=== PATIENT | female | born 1940 | race Caucasian/White ===

== ENCOUNTER → 2017-01-14 | Outpatient (CLI) | payer MEDICARE, OTHER ==
[2016-07-21 15:11] VITALS: BP 151/71
[~2017-01-14] MED LIST: APIX5TAB PO; ASPI-482 PO; ATOR10TA PO; AZIT250T PO; CELE100C PO; FLUT16SP NS; HYDR-971 PO; LEVO100T PO; LORA10TA68 PO; NAPR500T3 PO; SERT100T PO; TRIA1TAB3 PO
--- NOTE | 2017-01-14 14:58 | KCIC ---
PROCEDURE Renal sonography HISTORY Left renal mass. Follow up study COMPARISON Renal sonogram dated September 11, 2016. FINDINGS The longitudinal and AP and transverse dimensions of the right kidney are 10.6 centimeters and 4.0 centimeters and 5.0 centimeters respectively. No renal mass or hydronephrosis or perinephric fluid collection is seen on this side. The longitudinal and AP and transverse dimensions of the left kidney are 10.6 centimeters and 4.3 centimeters and 4.5 centimeters respectively. There is a hypoechoic lesion within the mid aspect of the left kidney with internal septation and sound through transmission. It measures 5.2 centimeters x 3.0 centimeters x 2.7 centimeters in size. On the previous study, it measured 5.0 centimeters and 3.3 centimeters and 3.3 centimeters in size. Therefore, it has not changed significantly in size. No hydronephrosis or perinephric fluid collection is seen on this side. IMPRESSION Complex cyst of the left kidney which has not changed significantly in size. Recommend continued renal sonography follow-up in 6 months. Electronically signed by: Terry Fox MD (Jan 14, 2017 14:56:09)
== END | disposition home or self-care (01) ==
LOC: KCIC US 13:09
PROVIDERS: ATTEND Family Medicine
DX: N28.89 Other specified disorders of kidney and ureter (principal)
CPT/HCPCS: 76770

== ENCOUNTER → 2017-08-17 | Outpatient (CLI) | payer MEDICARE, OTHER ==
[2016-07-21 15:11] VITALS: BP 151/71
[~2017-08-17] MED LIST changes: -NAPR500T3 PO; +NAPR500T4 PO
--- NOTE | 2017-08-17 15:26 | KCIC ---
EXAM: Renal sonogram complete. HISTORY: Renal cyst follow-up. TECHNIQUE: Sonographic imaging of the kidneys and bladder was performed. COMPARISON: 01/14/2017. FINDINGS: The right kidney measures 12.3 cm yvnb-jz-kziq and the left kidney measures 11.1 cm kjty-dv-hnsl. There is a 4.5 x 3.2 x 2.7 cm complex cystic lesion with thin internal septations within the left kidney. This demonstrates no internal blood flow. There is no hydronephrosis. The bladder is unremarkable. IMPRESSION: 1. 4.5 x 3.2 x 2.7 complex cystic lesion with internal septations within the left kidney, previously measuring 5.2 x 3.0 x 2.7 cm. The interval decrease in maximum dimension may be due to differences in measurement technique. Continued short-term follow-up is recommended to confirm longer-term stability. 2. Otherwise, unremarkable renal sonogram. Electronically signed by: Izabella Santoyo MD (08/17/2017 3:22 PM) [facility]
--- NOTE | 2017-08-17 16:35 | RAD ---
DATE: 08/17/2017 EXAM: MAMMO ETHAN SCREENING BILATERAL HISTORY: Asymptomatic screening mammogram. COMPARISON: Prior mammograms 08/14/2016, 08/13/2015 This study was interpreted with the benefit of Computerized Aided Detection (CAD). The breast parenchyma shows scattered fibroglandular densities. Breast parenchyma level B. FINDINGS: Bilateral CC and MLO views of the breasts were performed. Bilateral breast tomosynthesis was performed in CC and MLO projections. Right breast: There are no suspicious microcalcifications, masses or areas of architectural distortion. Left breast: There are no suspicious microcalcifications, masses or areas of architectural distortion. Findings are stable from prior mammogram. IMPRESSION: Negative 2D and 3-D bilateral mammogram. BI-RADS CATEGORY: 1 NEGATIVE RECOMMENDED FOLLOW-UP: 12M 12 MONTH FOLLOW-UP PQRS compliance statement: Patient information was entered into a reminder system with a target due date 08/17/2018 for the next mammogram. Mammography is a sensitive method for finding small breast cancers, but it does not detect them all and is not a substitute for careful clinical examination. A negative mammogram does not negate a clinically suspicious finding and should not result in delay in biopsying a clinically suspicious abnormality. "Our facility is accredited by the [employer] Mammography [employer]."
== END | disposition home or self-care (01) ==
LOC: KCIC US 13:48
PROVIDERS: ATTEND Family Medicine
DX: Z12.31 Encounter for screening mammogram for malignant neoplasm of breast (principal); N28.1 Cyst of kidney, acquired
CPT/HCPCS: 76770; 77063; G0202; 77067

== ENCOUNTER → 2017-12-16 | Outpatient (CLI) | payer MEDICARE, OTHER ==
[2017-12-16] MEDS: IOHEXOL 300 MG/ML 100ML VIAL. IV ×2 (10:25)
== END | disposition home or self-care (01) ==
LOC: KCIC CT 09:44
DX: I49.3 Ventricular premature depolarization (principal); I70.0 Atherosclerosis of aorta; D71 Functional disorders of polymorphonuclear neutrophils; Z86.711 Personal history of pulmonary embolism
CPT/HCPCS: 71275; Q9967

== ENCOUNTER → 2018-01-17 | Outpatient (CLI) | payer MEDICARE, OTHER ==
[2018-01-17] MEDS: REGADENOSON 0.4 MG/5 ML DISP.SYRIN. IV (10:34)
== END | disposition home or self-care (01) ==
LOC: NM 07:47
DX: R06.09 Other forms of dyspnea (principal); I10 Essential (primary) hypertension; Z88.0 Allergy status to penicillin; Z86.79 Personal history of other diseases of the circulatory system
CPT/HCPCS: 78452; 93017; 93306; 96374; 96375; 96376; A9500; J2785

== ENCOUNTER → 2018-01-27 | Outpatient (CLI) | payer MEDICARE, OTHER ==
[2018-01-27] MEDS: IOHEXOL 300 MG/ML 100ML VIAL. IV (13:08)
[2018-01-27] MEDS: IOHEXOL 240 MG/ML 50ML VIAL. PO (13:08)
== END | disposition home or self-care (01) ==
LOC: KCIC CT 11:39
DX: N28.89 Other specified disorders of kidney and ureter (principal); K42.9 Umbilical hernia without obstruction or gangrene; I70.0 Atherosclerosis of aorta
CPT/HCPCS: 74177; Q9966; Q9967

== ENCOUNTER → 2018-09-29 | Outpatient (CLI) | payer MEDICARE, OTHER ==
[2016-07-21 15:11] VITALS: BP 151/71
[~2018-09-29] MED LIST changes: +HYDR-3164 PO; -HYDR-971 PO; +NAPR-514 PO; -NAPR500T4 PO
--- NOTE | 2018-09-29 13:25 | KCIC ---
Bilateral digital screening mammograms with 3-D tomosynthesis: Reason for examination: Routine screening. Comparison is made to previous studies dated 08/17/2017 and 08/14/2016. Bilateral mammograms in CC and oblique projections were obtained with 2-D imaging and 3-D tomosynthesis imaging on a Siemens Inspiration unit and reviewed on the workstation. Interpretation was made with the benefit of CAD. The skin and nipples show no abnormalities. No abnormal axillary lymph nodes are seen. The breast parenchyma shows scattered fatty and fibroglandular density. (Breast density: Category B.) There continues to be some nodularity at the 2:00 B position of the left breast consistent with probable intramammary lymph node which is stable. There is however a new nodule in the central left breast approximately 8 cm deep to the nipple and measuring approximately 5 mm in size. This may represent a cyst but recommend further evaluation with ultrasound. There are no other new dominant masses, suspicious calcifications or architectural distortion. Benign calcifications are present. Impression: 5 mm nodule in the central left breast approximately 8 cm deep to the nipple. Recommend further evaluation with ultrasound. BI-RADS Category 0: Incomplete. Needs additional imaging evaluation. "Our facility is accredited by the [employer] Mammography [employer]." This patient's information has been entered into a reminder system for the patient to be notified with the results of her examination and a target date for the next mammogram. Electronically signed by: Brenda Salguero MD (09/29/2018 1:22 PM) [facility]
== END | disposition home or self-care (01) ==
LOC: KCIC MAMMO 09:00
PROVIDERS: ATTEND Family Medicine
DX: Z12.31 Encounter for screening mammogram for malignant neoplasm of breast (principal); Z80.3 Family history of malignant neoplasm of breast
CPT/HCPCS: 77063; 77067

== ENCOUNTER → 2018-11-18 | Outpatient (CLI) | payer MEDICARE, OTHER ==
[2016-07-21 15:11] VITALS: BP 151/71
--- NOTE | 2018-11-18 17:24 | KCIC ---
Renal sonography Clinical indications: Follow-up of left kidney cyst. COMPARISON: January 14, 2017 August 17, 2017. FINDINGS: The longitudinal and AP and transverse dimensions of the right kidney are 11.7 cm and 4.3 cm and 5.3 cm respectively. No renal mass or perinephric fluid collection or hydronephrosis is seen on this side. The longitudinal and AP and transverse dimensions of the left kidney are 10.6 cm and 4.8 cm and 4.0 cm respectively. Again seen is a complex cyst of the upper pole of the left kidney which measures 4.9 cm and 2.4 cm and 3.2 cm in size. On the previous 2 studies in December 2016 and July 2017, the cyst measured 5.2 cm x 3.0 cm x 2.7 cm and 4.5 cm x 2.7 cm and 3.2 cm respectively. Therefore, there has been no change in size of this cyst. No hydronephrosis or perinephric fluid collection is seen on the left side. Urinary bladder is mildly distended. No intraluminal echodensities or masses are seen. IMPRESSION: No change in size of complex cyst of the upper pole of the left kidney since January 14, 2017. Electronically signed by: Terry Fox MD (11/18/2018 5:19 PM) [facility]
== END | disposition home or self-care (01) ==
LOC: KCIC US 13:43
PROVIDERS: ATTEND Family Medicine
DX: N28.1 Cyst of kidney, acquired (principal)
CPT/HCPCS: 76770

== ENCOUNTER → 2019-04-10 | Outpatient (CLI) | payer MEDICARE, OTHER ==
[2016-07-21 15:11] VITALS: BP 151/71
--- NOTE | 2019-04-10 11:26 | KCIC ---
Left breast ultrasound: Reason for examination: Follow-up nodules. Comparison is made to previous study dated 10/07/2018. Left whole breast ultrasound including evaluation of all 4 quadrants and the retroareolar and axillary regions of the left breast was performed. There continue to be small hypoechoic lesions at the 2:00, 3:00, 6:00 and 9:00 positions which have benign cystic and fibrocystic appearances. These all appear to be smaller than on previous exam. There is some ductal ectasia in the retroareolar 9:00 position. No suspicious-appearing nodules are seen. No abnormal appearing lymph nodes are seen in the axilla. IMPRESSION: Continued presence of small benign-appearing nodules which have decreased in size since previous exam consistent with cystic and fibrocystic changes. No suspicious lesions are seen. Recommend routine mammographic follow-up. BI-RADS Category 2: Benign. "Our facility is accredited by the [employer] Mammography [employer]." This patient's information has been entered into a reminder system for the patient to be notified with the results of her examination and a target date for the next mammogram. Electronically signed by: Brenda Salguero MD (04/10/2019 11:23 AM) [facility]
== END | disposition home or self-care (01) ==
LOC: KCIC US 10:30
PROVIDERS: ATTEND Family Medicine
DX: N64.89 Other specified disorders of breast (principal); N60.42 Mammary duct ectasia of left breast
CPT/HCPCS: 76641

== ENCOUNTER → 2019-11-06 | Outpatient (CLI) | payer MEDICARE, OTHER ==
[2016-07-21 15:11] VITALS: BP 151/71
--- NOTE | 2019-11-07 12:17 | KCIC ---
Bilateral digital screening mammograms and tomosynthesis Reason for examination: Routine screening. Comparison is made to previous study dated mammogram September 29, 2018, breast ultrasound April 10, 2019, and priors Routine CC and MLO digital views obtained. Interpretation was made with the benefit of CAD. The skin and nipples show no abnormalities. No abnormal lymph nodes are seen. The breast parenchyma is scattered fibroglandular elements. (Breast density: Category B.) There are no suspicious masses, suspicious calcifications or architectural distortions. Benign calcifications. Left outer breast mid depth intramammary lymph node is stable, benign. Impression: Negative mammogram. Recommend routine screening. BI-RADS Category 2: Benign. "Our facility is accredited by the [employer] Mammography Program." This patient's information has been entered into a reminder system for the patient to be notified with the results of her examination and a target date for the next mammogram. Electronically signed by: Alvaro Hunter MD (11/07/2019 12:15 PM) [facility]
== END | disposition home or self-care (01) ==
LOC: KCIC MAMMO 14:47
PROVIDERS: ATTEND Family Medicine
DX: Z12.31 Encounter for screening mammogram for malignant neoplasm of breast (principal); N64.89 Other specified disorders of breast
CPT/HCPCS: 77063; 77067

== ENCOUNTER → 2020-04-09 | Outpatient (CLI) | payer MEDICARE, OTHER ==
[2016-07-21 15:11] VITALS: BP 151/71
[~2020-04-09] MED LIST changes: +LEVO-101 PO; -LEVO100T PO
--- NOTE | 2020-04-09 10:59 | CARD ---
MR#: [id number] Date of Study: 04/09/2020 Ordering Physician: KRISSY ENGLISH, Referring Physician: KRISSY ENGLISH Tech: Annmarie Winters RDCS APPROVED REPORT EXAM: Two-dimensional and M-mode echocardiogram with Doppler and color Doppler. Other Information Quality : Good INDICATION Hypertension/HCVD 2D DIMENSIONS RVDd3.1 (2.9-3.5cm)Left Atrium(2D)3.9 (1.6-4.0cm) IVSd1.1 (0.7-1.1cm)Aortic Root(2D)3.0 (2.0-3.7cm) LVDd4.5 (3.9-5.9cm)LVOT Diameter2.1 (1.8-2.4cm) PWd1.0 (0.7-1.1cm)LVDs2.7 (2.5-4.0cm) FS (%) 30.0 %SV64.5 ml LVEF(%)60.0 (>50%) Aortic Valve AoV Peak Alfonso.112.7cm/sAoV VTI22.9cm AO Peak GR.5.1mmHgAO Mean GR.3mmHg AI P 1/2 Jezx814nj Mitral Valve MV E Hgcjxatr77.0cm/sMV DECEL OKOW237gi MV A Qpvxyeuz455.4cm/sE/A Ratio0.8 Tricuspid Valve TR P. Teoshwlm359wz/sRAP ZKWOVTAL7trLf TR Peak Gr.67tyRoSBAJ62mgJm Pulmonary Vein S1 Ueurnela48.9cm/sD2 Mnnimdra22.9cm/s LEFT VENTRICLE The left ventricle is normal size. There is normal left ventricular wall thickness. The left ventricu lar systolic function is normal and the ejection fraction is within normal range. The Ejection Fracti on is 55-60%. There is normal LV segmental wall motion. RIGHT VENTRICLE The right ventricle is normal size. The right ventricular systolic function is normal. ATRIA The left atrium size is normal. The right atrium size is normal. The interatrial septum is intact wit h no evidence for an atrial septal defect or patent foramen ovale as noted on 2-D or Doppler imaging. AORTIC VALVE The aortic valve is calcified but opens well. Doppler and Color Flow revealed mild aortic regurgitati on. There is no significant aortic valvular stenosis. MITRAL VALVE The mitral valve is calcified but opens well. There is no evidence of mitral valve prolapse. There is no mitral valve stenosis. Doppler and Color-flow revealed mild mitral regurgitation. TRICUSPID VALVE The tricuspid valve is normal in structure and function. Doppler and Color Flow revealed trace to mil d tricuspid regurgitation. The PA pressure was estimated at 30 mmHg. There is no tricuspid valve sten osis. PULMONIC VALVE The pulmonary valve is normal in structure and function. Doppler and Color Flow revealed trace to mil d pulmonic valvular regurgitation. There is no pulmonic valvular stenosis. GREAT VESSELS The aortic root is normal in size. The ascending aorta is mild dilated at 3.6 cm. The IVC is normal i n size and collapses >50% with inspiration. PERICARDIAL EFFUSION There is no evidence of significant pericardial effusion. Critical Notification Critical Value: No <Conclusion> The left ventricular systolic function is normal and the ejection fraction is within normal range. Th e Ejection Fraction is 55-60%. There is normal LV segmental wall motion. Doppler and Color Flow revealed mild aortic regurgitation. The ascending aorta is mild dilated at 3.6 cm. Signed by : Jcarlos Payton, Electronically Approved : 04/09/2020 10:59:10
== END | disposition home or self-care (01) ==
LOC: ECHO 09:39
PROVIDERS: ATTEND Internal Medicine Cardiovascular Disease
DX: I08.8 Other rheumatic multiple valve diseases (principal)
CPT/HCPCS: 93306

== ENCOUNTER → 2020-11-20 | Outpatient (CLI) | payer MEDICARE, OTHER ==
[2016-07-21 15:11] VITALS: BP 151/71
--- NOTE | 2020-11-20 12:32 | KCIC ---
EXAM: Bilateral screening mammogram. HISTORY: 80-year-old female presents for screening mammography. TECHNIQUE: Full-field digital craniocaudal and mediolateral oblique views of both breasts are obtaine d for evaluation. Computer aided detection was applied. COMPARISON: 09/29/2018 BREAST PARENCHYMAL DENSITY: Level B - Scattered fibroglandular densities. FINDINGS: There is no new suspicious mass, microcalcification or region of architectural distortion. IMPRESSION: BI-RADS Category 2: Benign finding(s). RECOMMENDATION: Annual mammography is recommended. If your mammogram demonstrates that you have dense breast tissue, which could hide abnormalities, and if you have other risk factors for breast cancer that have been identified, you might benefit from s upplemental screening tests that may be suggested by your ordering physician. Dense breast tissue, i n and of itself, is a relatively common condition. This information is not provided to cause undue c oncern, but rather to raise your awareness and to promote discussion with your physician regarding th e presence of other risk factors, in addition to dense breast tissue. A report of your mammography re sults will be sent to you and your physician. You should contact your physician if you have any ques tions or concerns regarding this report. Mammography is a sensitive method for finding small breast cancers, but it does not detect them all a nd is not a substitute for careful clinical examination. A negative mammogram does not negate a clin ically suspicious finding and should not result in delay in biopsying a clinically suspicious abnorma lity. PQRS compliance statement - Patient information was entered into a reminder system with a target due date for the next mammogram. "Our facility is accredited by the [employer] Mammography Program." Electronically signed by: Izabella Santoyo MD (11/20/2020 12:30 PM) [facility]
== END ==
LOC: KCIC MAMMO 09:15
PROVIDERS: ATTEND Family Medicine
DX: Z12.31 Encounter for screening mammogram for malignant neoplasm of breast (principal)
CPT/HCPCS: 77067

== ENCOUNTER → 2020-11-29 | Outpatient (CLI) | payer MEDICARE, OTHER ==
[2016-07-21 15:11] VITALS: BP 151/71
--- NOTE | 2020-11-29 16:16 | RAD ---
INDICATION: Reason: FOLLOW UP LT RENAL MASS / Spl. Instructions: / History: COMPARISON: November 18, 2018 TECHNIQUE: Grayscale and color ultrasound images obtained of the bilateral kidneys and bladder. FINDINGS: Right Kidney: 96 mm. No hydronephrosis. Left Kidney: 93 mm. No hydronephrosis. Complex cystic lesion measuring 41 x 33 x 23 mm. Bladder: 329 cc at time of exam. IMPRESSION: * Complex cystic mass of the left kidney is again seen without major change from prior. Electronically signed by: Abhi Fischer MD (11/29/2020 4:13 PM) [id number]
== END ==
LOC: US 09:24
PROVIDERS: ATTEND Family Medicine
DX: N28.89 Other specified disorders of kidney and ureter (principal)
CPT/HCPCS: 76770

== ENCOUNTER → 2021-04-03 | Outpatient (CLI) | payer MEDICARE, OTHER ==
[2016-07-21 15:11] VITALS: BP 151/71
[~2021-04-03] MED LIST changes: +REGADENOSON 0.4 MG/5 ML DISP.SYRIN. IV ONE
--- NOTE | 2021-04-03 13:40 | RAD ---
MR#: [id number] Date of Study: 04/03/2021 Ordering Physician: KRISSY ENGLISH, Referring Physician: DORIS BOWENS Tech: RT Nolberto Veloz) (N) APPROVED REPORT Test Type: Pharmacological Stress Nurse/Tech: Blank Beltran R.N. Test Indications: pvcs Cardiac History: htn, Medications: see ehr Medical History: see ehr Resting ECG: sb Resting Heart Rate: 47 bpm Resting Blood Pressure: 121/78mmHg Pretest Chest Pain: No chest pain Nurse/Tech Notes lungs cta, good radial pulse Consent: The procedure was explained to the patient in lay terms. Informed consent was witnessed. Soto eout was entered into Reading Room. History and Stress Test performed by RT Radha (Massiel) (N) Pharm. Details Pharmacologic stress testing was performed using 0.4mg per 5ml of regadenoson given intravenously ove r 7-10 seconds. Stress Symptoms No chest pain or symptoms.Dyspnea POST EXERCISE Reason for Termination: Infusion complete Target HR: No Max HR: 102 bpm Max Blood Pressure: 214/69mmHg Chest Pain: No. Arrhythmia: Yes. multifocal PVCs ST Change: No. INTERPRETATION Stress EKG Conclusion: Baseline EKG showed sinus rhythm. No ischemic changes at peak stress. Few PV C's without any significant arrhythmias. Imaging Protocol IMAGE PROTOCOL: Rest Tc-99m/stress Tc-99m 1 day Rest: Stress: Viability: Radiopharm.Tc99m AkupaawvcCd09z Sestamibi Dose10.9mCi 31mCi Duration 15min. 15min. Img Date 04/03/2021 04/03/2021 Inj-Img Edwc60rah. 60min. Rest Admin Site:IV - Right AntecubitalAdministrator:RT Nolberto Garcia)(N) Stress Admin Site: IV - Right AntecubitalAdministrator: RT Nolberto Garcia)(N) STRESS DATA End Diast. Vol.102.0mlAv. Heart Rate69.0bpm End Syst. Vol.33.0mlCO Index BSA0.0L/min Myocardial Pzka996.0gEject. Zuwqvmsc32.0% Stress Rates Pk. Fill Rate2.27EDV/secLVtime Pk. Fill 209.53msec Pk. Empty Rate4.22ESV/secLVtime Pk. Ofxij608.04msec 1/3 Pk. Fill0.89EDV/sec Stress Scores Regional WT0.00Summed WT0.00 Regional WM0.00Summed WM1.00 Study quality was good. Left Ventricular size was Normal at Rest and Stress. Lung uptake was . Left Ventricular ejection fraction is 76%. The rest and stress images show normal perfusion, normal contraction and thickening. LV Perf. Quant 17 Seg. SSS6.00 17 Seg. SRS1.00 17 Seg. SDS5.00 Stress Defect Extent (% LAD)3.10Rest Defect Extent (% LAD)0.00Rev. Defect Extent (% LAD)0.00 Stress Defect Extent (% LCX) 36.30Rest Defect Extent (% LCX)0.00Rev. Defect Extent (% LCX)20.00 Stress Defect Extent (% RCA)0.00Rest Defect Extent (% RCA)0.00Rev. Defect Extent (% RCA)0.00 Stress Defect Extent (% BRYANNA)8.50Rest Defect Extent (% BRYANNA)0.00Rev. Defect Extent (% BRYANNA)4.10 Conclusion 1. Regadenoson cardioisotope stress test did not show any evidence of ischemia or infarct. 2. Normal left ventricular systolic function with ejection fraction calculated at 76%. 3. Low risk for cardiac events. Signed by : Krissy English, Electronically Approved : 04/03/2021 13:40:19
--- NOTE | 2021-04-03 16:55 | CARD ---
MR#: [id number] Date of Study: 04/03/2021 Ordering Physician: KRISSY RUIZ, Referring Physician: Erica BOWENS: Bindu Lopez [facility] APPROVED REPORT EXAM: Two-dimensional and M-mode echocardiogram with Doppler and color Doppler. Other Information Quality : GoodHR: 55bpm Rhythm : PVC's INDICATION PVC's RISK FACTORS Hypertension 2D DIMENSIONS RVDd3.3 (2.9-3.5cm)Left Atrium(2D)3.8 (1.6-4.0cm) IVSd1.0 (0.7-1.1cm)Aortic Root(2D)3.2 (2.0-3.7cm) LVDd4.5 (3.9-5.9cm)LVOT Diameter2.3 (1.8-2.4cm) PWd1.5 (0.7-1.1cm)LVDs3.2 (2.5-4.0cm) FS (%) 29.5 %SV51.4 ml LVEF(%)56.6 (>50%) Aortic Valve AoV Peak Alfonso.139.2cm/Amna Peak GR.12.0mmHg LVOT Peak Alfonso.81.1cm/sAVA (VMAX)2.47cm2 AI P 1/2 Ulzy1085bu Mitral Valve MV E Bythxcpj26.0cm/sMV E Peak Gr.4mmHg MV A Lrvmzoje61.5cm/sMV E Mean Gr.2mmHg E/A Ratio0.8 TDI E/Lateral E'10.8E/Medial E'12.0 Pulmonary Valve PV Peak Lfputeid35.1cm/s Tricuspid Valve TR P. Kajnjzue034al/sRAP SFMVFCEK3hfHf TR Peak Gr.77nyShZQEK62zzKi Pulmonary Vein S1 Kdwyffeb04.2cm/sD2 Ibdmhxoo10.2cm/s PVa djpqwrre911ucuc LEFT VENTRICLE The left ventricle is normal size. There is normal left ventricular wall thickness. The left ventricu lar systolic function is normal. The ejection fraction is 55-60%. There is normal LV segmental wall m otion. Transmitral Doppler flow pattern is Grade I-abnormal relaxation pattern. No left ventricle thr ombus noted on this study. There is no ventricular septal defect visualized. There is no left ventric ular aneurysm. There is no mass noted in the left ventricle. RIGHT VENTRICLE The right ventricle is normal size. There is normal right ventricular wall thickness. Systolic functi on is mildly reduced. ATRIA The left atrium is mildly dilated. The right atrium is mildly dilated. The interatrial septum is inta ct with no evidence for an atrial septal defect or patent foramen ovale as noted on 2-D or Doppler im aging. AORTIC VALVE The aortic valve is normal in structure and function. Doppler and Color Flow revealed mild aortic reg urgitation. There is no aortic valvular stenosis. There is no aortic valvular vegetation. MITRAL VALVE The mitral valve is normal in structure and function. There is no evidence of mitral valve prolapse. There is no mitral valve stenosis. Doppler and Color-flow revealed mild to moderate mitral regurgitat ion. TRICUSPID VALVE The tricuspid valve is normal in structure and function. Doppler and Color Flow revealed mild tricusp id regurgitation. PAP 37 mmHg. Doppler and Color Flow revealed mild pulmonary hypertension. There is no tricuspid valve prolapse or vegetation. There is no tricuspid valve stenosis. PULMONIC VALVE The pulmonary valve is normal in structure and function. There is no pulmonic valvular regurgitation. There is no pulmonic valvular stenosis. GREAT VESSELS The aortic root is normal in size. The ascending aorta is Mildly dilated. The pulmonary artery is nor mal. The IVC is normal in size and collapses >50% with inspiration. PERICARDIAL EFFUSION There is no pleural effusion. There is no evidence of significant pericardial effusion. Critical Notification Critical Value: No <Conclusion> The left ventricular systolic function is normal. The ejection fraction is 55-60%. There is normal LV segmental wall motion. Transmitral Doppler flow pattern is Grade I-abnormal relaxation pattern. Mild aortic regurgitation. Mild to moderate mitral regurgitation. Mild tricuspid regurgitation. Estimated PAP 37 mmHg. There is no evidence of significant pericardial effusion. Signed by : Krissy Ruiz, Electronically Approved : 04/03/2021 16:54:36
== END ==
LOC: NM 07:42
PROVIDERS: ATTEND Internal Medicine Cardiovascular Disease
DX: I08.3 Combined rheumatic disorders of mitral, aortic and tricuspid valves (principal); I27.20 Pulmonary hypertension, unspecified; I49.3 Ventricular premature depolarization
CPT/HCPCS: 78452; 93017; 93306; A9500; J2785

== ENCOUNTER 2021-10-29 00:48 | Emergency (ER) | payer MEDICARE, OTHER ==
[~2021-10-29] VITALS: Ht 175.3 cm; Wt 87.9 kg
[~2021-10-29 00:48] MED LIST changes: -REGADENOSON 0.4 MG/5 ML DISP.SYRIN. IV ONE
--- NOTE | 2021-10-29 02:27 | PHYS DOC ---
Past Medical History Past Medical History: Depression, High Cholesterol, Hypertension Past Surgical History: Cholecystectomy, Knee Replacement, Tubal ligation Additional Past Surgical Histo: bilateral knee replacement, cataract Smoking Status: Never Smoker Alcohol Use: None Drug Use: None General Adult EDM: Chief Complaint: ACCIDENTAL INGESTION HPI: HPI: Patient is a 81 year old female who is here with concern of accidental overdose of medication. She is prescribed propranolol. She had previously been prescribed 60 mg propanolol, but she avoided taking this because she has frequent episodes of bradycardia. She went to her doctor recently and they prescribed 10 mg propranolol instead. She is supposed to take 2 tablets of propranolol at a time. Around 10 PM, she took 2 tablets of the 60 mg propanolol and became concerned. She denies dizziness, syncope, headache, chest pain, dyspnea. She denies weakness, fall. She denies abdominal pain. She denies nausea or vomiting. She reports that she feels well. She does have some bradycardia here, that she reports that she has a heart rate in the 50s or low 60s, at baseline. She did not take more than the 2 tablets of the 60 mg propranolol, she did not take the 10 mg dose. She still has trepidation about taking even the 10 mg dose of the propranolol secondary to bradycardia. She has a gravure printing machinist with whom she can follow-up. Review of Systems: Review of Systems: Constitutional: Denies fever or chills. [] Eyes: Denies change in visual acuity. [] HENT: Denies nasal congestion or sore throat. [] Respiratory: Denies cough or shortness of breath. [] Cardiovascular: Denies chest pain or edema. [] GI: Denies abdominal pain, nausea, vomiting, bloody stools or diarrhea. [] : Denies dysuria. [] Musculoskeletal: Denies back pain or joint pain. [] Integument: Denies rash. [] Neurologic: Denies headache, focal weakness or sensory changes. [] Endocrine: Denies polyuria or polydipsia. [] Lymphatic: Denies swollen glands. [] Psychiatric: Denies depression or anxiety. [] Heart Score: C/O Chest Pain: No Risk Factors: Risk Factors: DM, Current or recent (<one month) smoker, HTN, HLP, family history of CAD, obesity. Risk Scores: Score 0 - 3: 2.5% MACE over next 6 weeks - Discharge Home Score 4 - 6: 20.3% MACE over next 6 weeks - Admit for Clinical Observation Score 7 - 10: 72.7% MACE over next 6 weeks - Early Invasive Strategies Allergies: Allergies: Allergies Coded Allergies Type Severity Reaction Last Updated Verified Penicillins Allergy Mild 10/12/13 Yes Physical Exam: PE: Constitutional: Well developed, well nourished, no acute distress, non-toxic appearance. [] HENT: Normocephalic, atraumatic Eyes: Conjunctiva normal, no discharge. [] Neck: Normal range of motion, no tenderness, supple, no stridor. Trachea is midline. Cardiovascular: Bradycardic, regular, rate in the low 60s and high 50s. +2 radial pulses, warm and well perfused, no peripheral edema Lungs & Thorax: Bilateral breath sounds clear to auscultation, no R/R/W Abdomen: Abdomen soft, nondistended, nontender to palpation Skin: Warm, dry, no erythema, no rash. [] Extremities: No tenderness, no cyanosis, no clubbing, ROM intact, no edema. No calf tenderness. Neurologic: Alert and oriented X 3, normal motor function, normal sensory function, no focal deficits noted. [] Psychologic: Affect normal, judgement normal, mood normal. She is very pleasant cooperative. EKG: EKG: [] Radiology/Procedures: Radiology/Procedures: [] Course & Med Decision Making: Course & Med Decision Making Pertinent Labs and Imaging studies reviewed. (See chart for details) The patient is several hours out from her ingestion. She is hemodynamically stable, she is asymptomatic of any complaints at all. She does have some mild sinus bradycardia on telemetry, which she reports is chronic for her. There is no indication for further invasive exams, imaging, labs, she does not demonstr ate any evidence of severe toxidrome. I told her to make sure she contacts her PCP to discuss this further, and she may also follow-up with her gravure printing machinist as well. Strict return precautions are given. She verbalizes understanding and is comfortable with the plan of care. Chayo Disclaimer: Chayo Disclaimer: This electronic medical record was generated, in whole or in part, using a voice recognition dictation system. Departure Departure Impression: Primary Impression: Ingestion, drug, inadvertent or accidental Qualified Codes: T50.901A - Poisoning by unspecified drugs, medicaments and biological substances, accidental (unintentional), initial encounter Disposition: HOME / SELF CARE / HOMELESS Condition: STABLE Referrals: MARKUS MENJIVAR MD (PCP) Patient Instructions: Overdose, Accidental Additional Instructions: Your blood pressure and vital signs and heart rate are all stable here today. Even though you took 1 extra dose of the higher dose of propranolol, this does not appear to have adversely affected your health or your vital signs. You may resume your regular medication regimen as directed by your primary care doctor, starting tomorrow. Return to the ER for chest pain, severe shortness of breath, dizziness, passing out, focal weakness, if you are acutely injured, sustained any trauma or for any other concerns. Please follow-up with your doctor regarding your tremors and further medication treatment for this problem. You may also follow-up with your gravure printing machinist for this. LELAND RENDON DO Oct 29, 2021 02:27
[2021-10-29 02:40] VITALS: BP 184/79
== END 2021-10-29 03:00 | disposition home or self-care (01) ==
LOC: ER 00:48
DX: T44.7X1A Poisoning by beta-adrenoreceptor antagonists, accidental (unintentional), initial encounter (principal); E78.00 Pure hypercholesterolemia, unspecified; I10 Essential (primary) hypertension; Z88.0 Allergy status to penicillin; Y92.89 Other specified places as the place of occurrence of the external cause
CPT/HCPCS: 99281

== ENCOUNTER → 2021-10-30 | Outpatient (CLI) | payer MEDICARE, OTHER ==
[2021-10-29 02:40] VITALS: BP 184/79
[~2021-10-30] MED LIST changes: +IOHEXOL 300 MG/ML 100ML VIAL. IV ONE
--- NOTE | 2021-10-30 14:03 | KCIC ---
Examination: CT chest without contrast HISTORY: Shortness of breath COMPARISON: None available TECHNIQUE: Axial CT images of the chest were performed with IV contrast. Coronal and sagittal reforma ts are performed Exposure: One or more of the following individualized dose reduction techniques were utilized for thi s examination: 1. Automated exposure control 2. Adjustment of the mA and/or kV according to patient size 3. Use of iterative reconstruction technique FINDINGS: The visualized thyroid gland grossly appears unremarkable.The central airways are patent.No significa nt mediastinal lymphadenopathy. Minimal linear bibasilar lung atelectasis. Calcified granuloma right lung base measuring 8 mm. 4 mm nodule right lower lobe of the lung. The liver, spleen, adrenals gross ly appears unremarkable. Cholecystectomy changes. Partially visualized cystic structure identified in the left kidney measuring 2.9 cm likely cyst. Moderate degenerative changes thoracic spine. IMPRESSION: 1. 4 mm nodule right lower lobe of the lung. Per Fleischner Society guidelines for incidentally foun d solid nodule measuring 6-8 mm, initial CT follow-up is recommended in 6-12 months. Additional follo w-up can be considered in 18-24 month based on risk factors. 2. Minimal linear bibasilar lung atelectasis. Electronically signed by: Collins Moise MD (10/30/2021 2:01 PM) [id number]
== END ==
LOC: KCIC CT 12:50
PROVIDERS: ATTEND Family Medicine
DX: R91.1 Solitary pulmonary nodule (principal); J84.10 Pulmonary fibrosis, unspecified; N28.89 Other specified disorders of kidney and ureter; M47.814 Spondylosis without myelopathy or radiculopathy, thoracic region; R06.02 Shortness of breath; Z90.49 Acquired absence of other specified parts of digestive tract
CPT/HCPCS: 71260; 82565; Q9967

== ENCOUNTER → 2021-11-17 | Outpatient (CLI) | payer MEDICARE, OTHER ==
[2021-10-29 02:40] VITALS: BP 184/79
--- NOTE | 2021-11-17 09:35 | KCIC ---
CTA CHEST INDICATION: SHORT OF AIR Comparison: 10/30/2021. TECHNIQUE: Following the uneventful administration of intravenous contrast, 100 cc Omnipaque 300, axi al CT sections were obtained through the lungs and upper abdomen. Multiplanar reconstructions and MIP images were obtained. PQRS compliance statement: One or more of the following individualized dose reduction techniques were utilized for this examinat ion: 1. Automated exposure control 2. Adjustment of the mA and/or kV according to patient size 3. Use of iterative reconstruction technique FINDINGS: Pulmonary arteries: No evidence of pulmonary thromboembolic disease Lungs and Airways: No pulmonary mass or consolidation. Calcified pulmonary granulomas. No abnormality of the central airways. Pleura: The pleural spaces are normal. Heart and Mediastinum: The visualized thyroid is normal in size and attenuation. No axillary or supra clavicular lymphadenopathy. No mediastinal, hilar or retrocrural lymphadenopathy. Calcified mediastin al and right hilar lymph nodes consistent with remote granulomatous disease. Cardiomegaly. No pericar dial effusion. Coronary artery atherosclerotic disease. Atherosclerosis of the thoracic aorta. Small hiatal hernia. Abdomen: Cholecystectomy. Bones and Soft Tissues: Degenerative changes of the spine. IMPRESSION: 1. No evidence of pulmonary thromboembolic disease. 2. No pulmonary mass or consolidation. Electronically signed by: Tremaine Alba MD (11/17/2021 9:32 AM) [id number]
== END ==
LOC: KCIC CT 08:47
PROVIDERS: ATTEND Family Medicine
DX: J84.10 Pulmonary fibrosis, unspecified (principal); R06.02 Shortness of breath; I25.10 Atherosclerotic heart disease of native coronary artery without angina pectoris; I70.0 Atherosclerosis of aorta; K44.9 Diaphragmatic hernia without obstruction or gangrene; Z86.2 Personal history of diseases of the blood and blood-forming organs and certain disorders involving the immune mechanism
CPT/HCPCS: 71275; Q9967

== ENCOUNTER → 2021-12-08 | Outpatient (CLI) | payer MEDICARE, OTHER ==
[~2021-12-08] MED LIST changes: -IOHEXOL 300 MG/ML 100ML VIAL. IV ONE
--- NOTE | 2021-12-08 10:48 | KCIC ---
Bilateral digital screening mammograms: Reason for examination: Routine screening. Comparison is made to previous studies dated back to 08/14/2016. Interpretation was made with the benefit of CAD. The skin and nipples show no abnormalities. No abnormal axillary lymph nodes are seen. The breast par enchyma shows scattered fibroglandular density. (Breast density: Category B.) There continues to be s ome parenchymal asymmetry in the upper outer quadrant of the right breast. There continue to be small circumscribed nodules consistent with intramammary lymph nodes at the 2:00 B position of the left br east. There are no new dominant masses, suspicious calcifications or architectural distortions. Some benign calcifications are present. Impression: No evidence of malignancy. Recommend routine screening. BI-RADS category 2: Benign "Our facility is accredited by the [employer] Mammography [employer]." This patient's information has been entered into a reminder system for the patient to be notified wit h the results of her examination and a target date for the next mammogram. Electronically signed by: Brenda Salguero MD (12/08/2021 10:45 AM) [id number]
== END ==
LOC: KCIC MAMMO 09:58
PROVIDERS: ATTEND Family Medicine
DX: Z12.31 Encounter for screening mammogram for malignant neoplasm of breast (principal)
CPT/HCPCS: 77067